=== PATIENT | female | born 1990 | race Caucasian/White ===

== ENCOUNTER 2024-05-06 05:09 | Inpatient (IN) | payer OTHER, SELFPAY ==
[2024-05-06] VITALS (154 sets, daily range): BP systolic 98–142; BP diastolic 55–93; PULSE 64–127; RESP 16; TEMP 36.6–37.1; O2SAT 96–100; BMI 30.8
--- NOTE | 2024-05-06 05:28 | LDADM ---
This patient, Elena Winston, was admitted to Labor/Delivery/Recovery 104 on 05/06/24 at 05:09. Plans for labor, pain management and were discussed with patient. Patient/family oriented to hospital policies and general routines including ID bracelet, bed and alarms, visiting hours, pain management, procedures, bathroom and other care routines, personal items, smoking policy, room service/diet and guest tray routines, security routines, and visiting hours. Patient/Family are encouraged to report perceived risks to care and to ask questions if they do not understand what they are told or what they should do. See [facility] for further documentation.
[2024-05-06 05:41] LABS: Basophils Absolute Auto 0.1 K/mm3 (0.0-0.1); Basophils Percent Auto 0.5 % (0.2-1.2); Eosinophils Absolute Auto 0.1 K/mm3 (0-0.3); Eosinophils Percent Auto 1.1 % (0-4.4); Hematocrit 34.2 % (37.0-47.0); Hemoglobin 11.2 g/dL (12.0-15.0); Immature Granulocyte Absolute 0.07 K/mm3 (0.00-0.031); Immature Granulocyte Percent A 0.7 % (0-0.5); Lymphocytes Absolute Auto 2.79 K/mm3 (0.9-3.2); Lymphocytes Percent Auto 27.8 % (18.3-44.2); Mean Corpuscular HGB Conc 32.7 g/dl (32-36); Mean Corpuscular Hemoglobin 27.7 pg (26-34); Mean Corpuscular Volume 84.4 fl (80-100); Mean Platelet Volume 11.4 fl (7.4-10.4); Monocytes Absolute Auto 0.6 K/mm3 (0.1-0.6); Monocytes Percent Auto 5.6 % (2.6-8.5); Neutrophils Absolute Auto 6.5 K/mm3 (1.3-6.7); Neutrophils Percent Auto 64.3 % (45.5-73.1); Platelet Count Result 209 k/mm3 (150-375); Red Blood Count 4.05 M/mm3 (4.2-5.4); Red Cell Distribution Width 14.5 % (11.5-14.5)
[2024-05-06] MEDS: OXYTOCIN 30 UNITS/NS 500 ML 30 UNITS/500 ML BAG 6 UNITS IV CONT (05:57)
[2024-05-06] MEDS: LACTATED RINGERS 1,000 ML 125 ML IV CONT ×3 (05:57→17:59)
[2024-05-06 06:32] LABS: HIV 1/2 Ab P24 Ag Result Negative (Negative)
[2024-05-06 06:54] LABS: Rapid Plasma Reagin Non-Reactive (NonReactive)
--- NOTE | 2024-05-06 08:41 | WPDHPUPDATE1 ---
History and Physical Update Update Date/Time: 05/06/24 08:41 33-year-old primiparous female at term who presents for elective induction. Cervix 3, 50, -2 -reassuring heart rate tracing. Active management of labor. Artificial rupture of membranes-clear, Pitocin History and Physical has been reviewed, including an updated exam of the patient. There are NO changes in the patient's condition. Risks, benefits, and alternatives have been discussed and questions answered. Patient agrees to proceed with procedure.
[2024-05-06] MEDS: ONDANSETRON INJ 4 MG/2 ML VIAL IV PUSH (15:39)
--- NOTE | 2024-05-06 19:41 | PM.OBPRVD ---
OB - Vaginal Delivery Note Procedure Delivery date: 05/06/24 Induction method: AROM and Per Pitocin Protocol Delivery monitor: External FHT and Internal Uterine Route of delivery: Episiotomy description: Midline Laceration Description: None Delivery repair: vicryl Specimen: No Quantitative Blood Loss (ml): 500 Anesthesia type: Epidural Disposition: Floor Complications: No immediate complications Baby Date of : 05/06/24 Time of : 19:20
[2024-05-06] MEDS: OXYTOCIN 30 UNITS/NS 500 ML 30 UNITS/500 ML BAG 125 UNITS IV CONT (19:45)
[2024-05-06] MEDS: WITCH HAZEL 40 PADS 1 PAD TOPICAL (20:17)
[2024-05-06] MEDS: BENZOCAINE 20% AER SPR (*SP) 56 GM CAN 1 SPRAY TOPICAL (20:17)
[2024-05-06] MEDS: IBUPROFEN 600 MG TABLET PO (22:21)
--- NOTE | 2024-05-06 23:02 | PC.NURSE ---
05/06/2024 at 2203 Patient transferred to post room #279 in wheelchair. Support person and patient oriented to unit, room, information board, rooming in, admission packet and security measures. Patient and her significant other verbalizes understanding.
[2024-05-07 04:00] VITALS: BP 117/75; PULSE 86; RESP 16; TEMP 36.6; O2SAT 100
[2024-05-07] MEDS: IBUPROFEN 600 MG TABLET PO ×4 (04:22→23:06)
[2024-05-07 04:31] LABS: Hematocrit 25.8 % (37.0-47.0)
[2024-05-07 07:15] VITALS: BP 124/88; PULSE 108; RESP 16; TEMP 37.1; O2SAT 100
--- NOTE | 2024-05-07 07:45 | PC.NURSE ---
Primary RN requested assistance for patient who is going to begin a feeding. Baby is LGA and has been fussy at feedings overnight with struggles latching. Mom already had baby latched to the right breast in football hold. Baby was sucking off and on with stimulation from mom. Encouraged mom that most babies are sleepy in the first 24 hours of life and need encouragement to breastfeed. Educated mom that it is best to feed when early feeding cues are seen rather than waiting for baby to cry, as this can make latching more challenging. Advised skin to skin to calm baby when needed and to feed on demand rather than by the clock. Mom declined pain with the latch and baby let go of the breast on her own after about 12 minutes. Assisted mom with burping and discussed signs that baby is satisfied after . Parents verbalized understanding of the information shared and will call out for assistance at subsequent feedings. Reported to primary RN.
[2024-05-07] MEDS: DOCUSATE SODIUM 100 MG CAPSULE PO ×2 (07:48→17:28)
[2024-05-07] MEDS: POLYSACCHARIDE IRON COMPLEX 150 MG CAPSULE PO ×2 (07:48→17:28)
[2024-05-07] MEDS: ACETAMINOPHEN 325 MG TABLET 650 MG PO ×3 (07:49→23:06)
[2024-05-07] MEDS: MULTIVIT/MIN/PREN/FOL AC/IRON TABLET 1 TAB PO ×2 (07:52→08:15)
--- NOTE | 2024-05-07 08:52 | WPDANLDPN2 ---
Anes-Prog Note L&D Date/Time: 05/07/24 08:52 Comfortable throughout: labor and delivery Neuraxial method: epidural Epidural/Spinal procedure site: clean & non-tender Neuro status: Neuro function grossly intact. Cardiovascular status: normal Respiratory status: normal Airway patency: baseline Mental status: baseline Post-Op hydration status: normal Vital Signs: Last Vital Signs Temp 37.1 C 05/07/24 07:15 Pulse 108 H 05/07/24 07:15 Resp 16 05/07/24 07:15 BP 124/88 05/07/24 07:15 Pulse Ox 100 05/07/24 07:15 O2 Del Method Room Air 05/07/24 08:05 Pain score (VAS): 1 I/O: Intake & Output 05/06/24 05/07/24 05/07/24 23:59 07:59 15:59 Intake Total 1000 Output Total 500 Balance 500 Post-procedural complaints: none Patient feedback: Patient satisfied with anesthetic care.
--- NOTE | 2024-05-07 10:13 | P.PNOB_ITS ---
OB - PN: Subj Subjective Date/time seen: 05/07/24 10:13 Patient comments: no complaints, pain well controlled, incisional pain, tolerating diet and flatus present OB - PN: Obj Data Labs 05/07/24 04:03 Labs: Laboratory Results - last 24 hr 05/07/24 04:03 Hgb 8.0 L D Hct 25.8 L OB - PN A/P Plan day: 1 Plan: routine care Comments: No problems, routine care Time Spent With Patient Time: Total time spent is greater than 50% in coordination of care (as documented) at patient's floor/unit and/or counseling patient: Exam 2 Const: General: comfortable, no acute distress and alert Resp: Effort & Inspection: normal respiratory effort Auscultation: no crackles, no rales and no rhonchi Cardio: Rate: regular rate Heart sounds: no click, no murmurs and no rubs GI: Inspection: non-distended GI Palp: No Tenderness to palpation present (GI) Auscultation: normal bowel sounds Other: Incision - CDI Extrem: General: normal to inspection, no pedal edema and no calf tenderness
--- NOTE | 2024-05-07 11:30 | PC.NURSE ---
1130- Checked on patient to see if the last feeding went okay since they hadn't call out for help. Mom says baby just ate for 20 minutes and did very well, no pain or complaints. Encouraged parents to call out for assistance as needed.
[2024-05-07 12:42] VITALS: BP 108/67; PULSE 94; RESP 16; TEMP 36.7; O2SAT 100
--- NOTE | 2024-05-07 15:30 | PC.NURSE ---
Mother called out for latching assistance. Infant is fussy and not able to latch or suck. We rotated to a new position and baby was able to suck on a gloved finger with chin support, but when offered the breast, baby was unable to close her mouth to latch. Primary RN noticed that baby had a 4 hour stretch between feedings and was showing significant feeding cues that were being masked by the use of a pacifier. Baby fed for 20 minutes at 1430 according to mom, but was acting hungry again an hour later. Encouraged mom to allow baby to settle by placing her skin to skin and then trying to feed again when early feeding cues are noted. Mom seems anxious and wants baby to feed now, but educated that babies don't respond well to feeding attempts when they are dysregulated. Encouraged mom to relax and call for assistance when baby is more call and receptive to feeding. Reported to primary RN.
[2024-05-07 20:00] VITALS: BP 123/75; PULSE 95; RESP 16; TEMP 36.4; O2SAT 96
[2024-05-08 08:00] VITALS: BP 115/75; PULSE 91; RESP 14; TEMP 36.4; O2SAT 99
--- NOTE | 2024-05-08 08:45 | PC.NURSE ---
Consulted with patient her plans to continue . Primary night RN stated that mother was feeding bottles throughout the night. Discussed her plan going forward and she would like to attempt with next feeding. Encouraged mother to call this RN to assist with next feeding. Educated mother that pumping should be initiated to protect her milk supply. Primary RN updated.
[2024-05-08] MEDS: MULTIVIT/MIN/PREN/FOL AC/IRON TABLET 1 TAB PO (08:55)
[2024-05-08] MEDS: ACETAMINOPHEN 325 MG TABLET 650 MG PO (08:55)
[2024-05-08] MEDS: IBUPROFEN 600 MG TABLET PO (08:55)
[2024-05-08] MEDS: DOCUSATE SODIUM 100 MG CAPSULE PO (08:55)
[2024-05-08] MEDS: POLYSACCHARIDE IRON COMPLEX 150 MG CAPSULE PO (08:55)
--- NOTE | 2024-05-08 09:05 | PC.NURSE ---
On 05/08/24, the student, Amina Vasquez, provided care and completed [facility] documentation on this patient. I have reviewed the student's documentation and agree with the findings.
--- NOTE | 2024-05-08 11:21 | PC.NURSE ---
Patient viewed the discharge video Mother & Baby Care, The First Two Weeks . Patient was given the opportunity and encouraged to ask questions. Patient verbalized understanding of information shared and has been given the mother/baby guide for home reference.
--- NOTE | 2024-05-08 12:03 | P.PNOB_ITS ---
OB - PN: Subj Subjective Date/time seen: 05/08/24 12:03 Patient comments: no complaints, pain well controlled and tolerating diet OB - PN: Obj Data Labs 05/07/24 04:03 OB - PN A/P Plan day: 2 Plan: routine care and discharge home Time Spent With Patient Time: Total time spent is greater than 50% in coordination of care (as documented) at patient's floor/unit and/or counseling patient: Exam 2 Const: General: comfortable and no acute distress Resp: Effort & Inspection: normal respiratory effort Auscultation: no rales, no rhonchi and no wheezes Cardio: Rate: regular rate Heart sounds: no click, no murmurs and no rubs GI: GI Palp: Yes Soft to palpation and No Tenderness to palpation present (GI) Auscultation: normal bowel sounds Extrem: General: normal to inspection, no pedal edema and no calf tenderness
--- NOTE | 2024-05-08 12:04 | PM.OBDSVD ---
DS: Admitting Diagnosis Discharge Date 05/08/2024 Admitting Diagnosis term DS: Discharge Diagnosis Discharge Diagnosis (1) Term : Code(s): Z34.90 - Encounter for supervision of normal , unspecified, unspecified trimester Status: Acute OB - DS: Summary OB Procedures : None OB Procedures Intrapartum: Spontaneous Vag Delivery OB Procedures: : None Peripartum Data Laceration Description: None Episiotomy description: Midline Time Spent with Patient Time attestation: Total time spent providing and/or coordinating discharge services: Discharge Plan Discharge Discharging Clinician: Placido Gastelum Patient Disposition: Home, Self-Care Activity: pelvic rest Diet: regular Patient Instructions: Antibiotic Form Patient Language: Upper Sorbian Stand Alone Forms: General Discharge Information Follow-up/Referrals: Placido Gastelum MD [Physician] - Discharge Medications: New ibuprofen 800 mg tablet 800 mg PO TID Qty: 20 0RF Continued PNV [id number]-ferrous fumarate-FA [] 28 mg iron- 800 mcg tablet 1 tablet PO DAILY Date of admission: 05/06/24 05:09 Primary Care Provider: Marciano Niño Admitting Provider: Placido Gastelum Attending physician on admission: Placido Gastelum Condition: Stable
[2024-05-09 10:41] VITALS: BP 124/77; PULSE 84; RESP 18; TEMP 36.9; O2SAT 100
--- OUTSIDE RECORDS SUMMARY | 2024-05-09 11:22 | XMS_ITS | Data Portability ---
Author Organization [facility] Address [address] [place] [address] Care Team Providers Care Paper Sorter Name Role Phone MONIQUE GERARD Primary Care Provider Assessment Encounter Date Assessment Date Assessment LastModified by Organization Details LastModified Time 03/20/2024 03/20/2024 Patient is __32_weeks . Discussed plan. [email or web address] Not available 03/20/2024 16:31:48 04/01/2024 04/01/2024 Patient is ___weeks . Discussed plan. Not available 04/01/2024 15:03:54 04/08/2024 04/08/2024 Patient is ___weeks . Discussed plan. Not available 04/08/2024 15:22:30 04/15/2024 04/15/2024 Patient is ___weeks . Discussed plan. [email or web address] Not available 04/15/2024 17:13:25 04/29/2024 04/29/2024 Patient is ___weeks . Discussed plan. Not available 04/29/2024 14:54:58 Plan of Treatment Reminders Order Date Submit Date Provider Last Modified By Organization Details Last Modified Time Details Appointments None record ed. Lab None record ed. Referral None record ed. Procedures None record ed. Surgeries None record ed. Imaging None record ed. Medication Orders None record ed. Patient TargetsNo targets recorded. Patient InstructionsNo instructions recorded. Reason for Referral None Reported. Results Created Date Observation Date Name Description Value Unit Range Abnormal Flag Note LastModifiedBy Organization Detail LastModifiedTime 02/19/20 24 02/19/2024 HEMAT OCRIT (HCT) HCT 35.4 % (based on docume nted legal sex) 34.0-4 5.0 Not Available [facility] (Lab) [address], [place], [address], 02/20/2024 12:06:08 02/19/20 24 02/19/2024 HEMOG LOBIN (HGB) HGB 11.5 g/dL (based on docume nted legal sex) 11.6-1 5.4 low Not Available [facility] (Lab) [address], [place], [address], 02/20/2024 12:06:08 02/19/20 24 02/19/2024 GTT - GESTA RAJAN L SCREE N, ACOG OB glucose, 1 hour screen 118 mg/dL 70-135 Not Available [facility] (Lab) [address], [place], [address], 02/20/2024 12:06:09 02/19/20 24 02/19/2024 HIV 1/2 ANTIG EN/AN TIBOD Y, REFLE X CONFI RMATI ON HIV antigen/anti body Nonrea ctive nonrea ctive HIV-1 antig en and HIV-1 /HIV- 2 antib odies were not detec ashu. No labor atory evide nce of HIV infec tion. Not Available [facility] (Lab) [address], [place], [address], 02/20/2024 12:06:09 02/19/20 24 02/19/2024 RPR SCREE N, REFLE X TITER /CONF IRMAT ION RPR screen Nonrea ctive nonrea ctive Not Available [facility] (Lab) [address], [place], [address], 02/20/2024 12:06:10 04/08/20 24 04/08/2024 CULTU RE: GROUP B STREP SCREE N, REFLE X SUSCE PTIBI LITY result report SEE RESULT S BELOW Test: Cultu re: Group B Strep , Refle x Susce ptibi lity ([facility]/ [facility]/K H/[facility] ) Speci men Sourc e: Vagin a/Rec keturah Speci men Type: Vagin al/Re ctal Speci men Date: 04/08 1521 Resul t Date: 04/11 0943 Resul t Statu s: Final resul t Abnor mal: No Resul ting Lab: [facility] [address] [facility] [address] Tel: [phone] CULTU RE ----- ----- ----- --- No Group B strep isola ashu at 2 days (evita ctive broth enhan cemen t) Not Available [facility] (Lab) [address], [place], [address], 04/11/2024 10:46:30 03/11/20 24 03/11/2024 US, obste tric, follo w-up No observ ation record ed. [email or web address] [facility] [address], [place], [address], 03/11/2024 11:29:05 03/11/20 24 03/11/2024 US, obste tric, follo w-up No observ ation record ed. [email or web address] [address] [address], [place], [address], 03/11/2024 15:59:19 Result Notes None recorded. Problems Name Problem SNOMED Code Status Onset Date Resolution Date Notes Provider Name and Address Organization Details Recorded Time 87550140 Active 2023 Selma James null, [facility] 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 4 16:02:08 Abnormal cervical Papanicol aou smear 619301307 Active Placido Gastelum MD [address], [place], [address], [facility] 4 16:27:54 Low lying placenta 971572290 Active 2023 LLP resolved 01/22/24 Ezio Iraheta null, [facility] 4 10:18:14 Abdominal pain 74006842 Active intermitt ent cramping, normal cervical length Placido Gastelum MD [address], [place], [address], [facility] 4 12:49:48 Problem Notes None recorded. Procedures Surgical History Date Name Laterality Status Provider Name and Address Organization Details Recorded Time 12/04/19 24 Colposcopy completed Placido Gastelum MD [address], [place], [address], [facility] 12/04/2023 22:42:41 10/30/19 24 Date of Last Pap Smear completed Selma James [facility] 12/04/2023 14:14:56 04/17/19 20 extraction of wisdom tooth completed Alicia Laura [facility] 04/15/2024 17:16:05 Imaging Results Imaging Date Name Status LastModified by Organiz ation Details LastModified Time 03/11/2024 US, obstetric, follow-up completed [email or web address] [facility] [address], [place], [address], 03/11/2024 11:29:05 03/11/2024 US, obstetric, follow-up completed [email or web address] [address], [place], [address], 03/11/2024 15:59:19 Procedure Notes None recorded. Medical Equipment None Reported. Allergies No known drug allergies Medications Name Sig Start Date Stop Date Status Note LastModified by Organization Details LastModified Time active Not Available Not Avai lable Not Available Vitals Date Recorded Body height Body mass index (BMI) Body weight Systolic blood pressure Diastolic blood pressure Provider Name and Address Organization Details Last Updated DateTime 03/20/2024 165.1 cm 30.1 kg/m2 89653.22 g 118 mm[Hg] 74 mm[Hg] Alicia Laura [facility] 16:12:39 Date Recorded Body height Body mass index (BMI) Body weight Systolic blood pressure Diastolic blood pressure Provider Name and Address Organization Details Last Updated DateTime 04/01/2024 165.1 cm 30 kg/m2 88157.63 g 113 mm[Hg] 75 mm[Hg] Selma [facility] 4 15:13:48 Date Recorded Body weight Systolic blood pressure Diastolic blood pressure Provider Name and Address Organization Details Last Updated DateTime 04/08/2024 93800.5884 5 g 117 mm[Hg] 77 mm[Hg] Selma [facility] 04/08/2024 15:23:11 Date Recorded Body weight Body mass index (BMI) Body height Systolic blood pressure Diastolic blood pressure Provider Name and Address Organization Details Last Updated DateTime 04/15/2024 91248.58 845 g 30.8 kg/m2 165.1 cm 128 mm[Hg] 78 mm[Hg] Alicia Laura [facility] 4 17:13:57 Date Recorded Body height Body mass index (BMI) Body weight Systolic blood pressure Diastolic blood pressure Provider Name and Address Organization Details Last Updated DateTime 04/29/2024 165.1 cm 30.8 kg/m2 37464.59 g 129 mm[Hg] 83 mm[Hg] Selma [facility] 14:56:11 Social History Question Answer Notes LastModified by Organizat ion Details LastModified Time Tobacco Smoking Status Former Smoker Alicia Laura [facility] 12/25/2023 16:03:51 What Is Your Level Of Alcohol Consumption? None [email or web address] Information not available 10/02/2023 If You Are , What Was Your Level Of Alcohol Consumption Prior To ? None [email or web address] Information not available 12/25/2023 How Many Years Have You Consumed Alcohol? 0 [email or web address] Information not available 03/20/2024 Are You Blind Or Do You Have Difficulty Seeing? No [email or web address] Information not available 10/02/2023 What Is Your Level Of Caffeine Consumption? Occasional [email or web address] Information not available 10/02/2023 How Much Tobacco Do You Chew? None [email or web address] Information not available 12/25/2023 In The 14 Days Before Symptom Onset, Have You Had Close Contact With A Laboratory-confir med COVID-19 While That Case Was Ill? No [email or web address] Information not available 10/02/2023 In The 14 Days Before Symptom Onset, Have You Had Close Contact With A Person Who Is Under Investigation For COVID-19 While That Person Was Ill? No [email or web address] Information not available 10/02/2023 Have You Been To An Area Known To Be High Risk For COVID-19? No [email or web address] Information not available 10/02/2023 Are You Deaf Or Do You Have Serious Difficulty Hearing? No [email or web address] Information not available 10/02/2023 What Type Of Diet Are You Following? REGULAR [email or web address] Information not available 10/02/2023 What Is The Highest Grade Or Level Of School You Have Completed Or The Highest Degree You Have Received? [id number] [email or web address] Information not available 10/02/2023 What Is Your Occupation? [employer] Information not available 04/29/2024 Are There Any Guns Present In Your Home? No [email or web address] Information not available 10/02/2023 Do You Use Protection During Sex? No [email or web address] Information not available 10/02/2023 Do You Use Your Seat Belt Or Car Seat Routinely? Yes Information not available 10/02/2023 Do You Have Smoke And Carbon Monoxide Detectors In Your Home? Yes [email or web address] Information not available 10/02/2023 At What Age Did You Start Smoking Tobacco? 19 [email or web address] Information not available 10/02/2023 How Much Tobacco Do You Smoke? No Information not available 12/25/2023 Do You Feel Stressed (tense, Restless, Nervous, Or Anxious, Or Unable To Sleep At Night)? [id number] [email or web address] Information not available 10/02/2023 Do You Use Any Illicit Or Recreational Drugs? No [email or web address] Information not available 12/25/2023 Do You Use Sunscreen Routinely? No [email or web address] Information not available 10/02/2023 How Many Years Have You Smoked Tobacco? 14 Information not available 10/02/2023 Have You Used IV Drugs? No [email or web address] Information not available 10/02/2023 Sex: Unknown Functional Status Question Answer Note LastModified by Organizat ion Details LastModified Time Do you have difficulty walking or climbing stairs? No [email or web address] Information not available 10/02/2023 Are you able to walk? YESWOREST [email or web address] Information not available 10/02/2023 Are you able to care for yourself? Yes [email or web address] Information not available 10/02/2023 Do you have difficulty dressing or bathing? No [email or web address] Information not available 10/02/2023 What is your exercise level? Occasional Information not available 10/02/2023 Mental Status None recorded. Family History Relationship Description Onset Age of this Age Resolved Age Notes LastModified by Organization Details LastModified Time Unspecified Relation Family history unknown [email or web address] Not available 2023 15:33:18 Medical History Condition Response Allergies (Food, seasonal, environmental ) N Other N Breast Cancer N Drug/Latex Allergies/Reactions N Blood Transfusion N Dermatologic Disorders N Lung Disease N Defects or Inherited Disease N Breast Problem N Gestational Diabetes N Hematologic disorders N Anesthesia Complications N History of STI Y Deep Vein Thrombosis N Polycystic ovary syndrome N Anxiety Disorder N Autoimmune disease N Arthritis N Infertility N Polyps N Acid Reflux (GERD) N History of abnormal pap Y Cancer N Stroke N Varicosities N Neurologic/Epilepsy N Endometriosis N High Cholesterol N Headaches N Fibromyalgia N Kidney Disease N Heart Problems N Kidney or Bladder Problems N Thyroid Problems N GI Problems N Eating Disorder N Anemia N Art (IVF or FET) N Psychiatric Illness N Ovarian Cancer N Diabetes N Pulmonary (TB, Asthma) N Hepatitis/Liver Disease N No Past Medical History Y Eczema N Urinary Tract Infection N Abuse/Domestic Violence N Asthma N Trauma/Violence N Depression/ depression N Heart Disease N Pre-Eclampsia N Hypertension N Osteoporosis N Thrombophilias N Gynecological History Statement/Question Response Abnormal Pap Yes Date of Last Mammogram Date of LMP 08/03/2023 On BCP's at Conception? N N Was last menstrual period normal Y STIs/STDs Y HPV Vaccine N Duration of Flow (days) 4 Current Control Method Date of Last Colonoscopy Frequency of Cycle (Q days) 5 Sexually Active? Y None Date of DEXA bone scan Age of first menstrual cycle 12 Date of Last Pap Smear 10/30/2023 Sexual Problems? N Desired Control Method None LMP Approximate N Obstetrics History GPAL:G 1 P 0 0 0 0 Type Value Living 0 Total 1 Past Encounters Encounter ID Performer Location Encounter Start Date Encounter Closed Date Diagnosis/Indication Diagnosis SNOMED-CT Code Diagnosis ICD10 Code Diagnosis Note Leah Cabrera [facility] [address],[place] [address] 10/02/2023 14:34:23 10/02/2023 15:03:46 [id number] Placido Gastelum MD [facility] [address],[place] [address] 10/02/2023 14:36:38 10/02/2023 16:03:25 Amenorrhea 71607206 N91.2 this patient is a 33-year-ol d female who presents for amenorrhea . She is a positive test. Ultrasound revealed a 1st trimester gestation. Patient has no complaints . We talked about early care. Talked about genetic screening. We talked about her ultrasound results. We talked about the 12 week ultrasound that has genetic screening components . She was given recommenda tions on exercise, diet, over-the-c ounter medication s. We reviewed her obstetric history. We reviewed her medical history. We reviewed her social history. She will begin routine care at her next visit. [id number] Monae Rani [facility] [address],[place] [address] 10/30/2023 14:26:01 10/30/2023 15:02:41 screening 112559628 Z36.82 Z3A.12 [id number] Placido Gastelum MD [facility] [address],[place] [address] 10/30/2023 14:26:46 10/30/2023 15:48:02 Routine care 447351532 Z34.91 [id number] Placido Gastelum MD [facility] [address],[place] [address] 11/27/2023 14:57:49 11/27/2023 15:59:35 Routine care 231771469 Z34.91 [id number] Placido Gastelum MD [facility] [address],[place] [address] 12/04/2023 13:58:10 12/05/2023 04:13:02 Abnormal cervical Papanicolaou smear 755984535 R87.619 colposcopy was performed. It was satisfacto ry. It was normal. To repeat Pap smear in 1 year [id number] [facility] [address],[place] [address] 12/25/2023 14:20:51 12/25/2023 17:03:10 screening for malformation 163068328 Z36.3 O44.40 Z3A.20 [id number] Placido Gastelum MD [facility] [address],[place] [address] 12/25/2023 14:21:40 12/25/2023 17:02:42 Routine care 108634397 Z34.91 [id number] Placido Gastelum MD [facility] [address],[place] [address] 01/22/2024 11:25:41 01/22/2024 12:51:21 Routine care 411256120 Z34.91 [id number] [facility] [address],[place] [address] 01/22/2024 11:26:55 01/22/2024 12:29:53 screening 587122714 Z36.2 O44.40 Z3A.24 [id number] Placido Gastelum MD [facility] [address],[place] [address] 02/19/2024 14:44:19 02/19/2024 15:57:34 Routine care 481267000 Z34.91 [id number] Placido Gastelum MD [facility] [address],[place] [address] 03/04/2024 15:43:16 03/04/2024 18:09:32 Routine care 617370171 Z34.91 [id number] Leah Cabrera [facility] [address],[place] [address] 03/11/2024 10:26:51 03/11/2024 10:58:27 Uterine size for dates discrepancy 948807600 O26.843 Z3A.31 [id number] Lainey Simpson [facility] [address],[place] [address] 03/20/2024 15:50:06 03/20/2024 16:44:23 Routine care 329673017 Z34.93 [id number] MD Matt Madden [address],[place] [address] 04/01/2024 14:43:00 04/01/2024 16:05:00 Routine care 909589436 Z34.91 [id number] Placido Gastelum MD [facility] [address],[place] [address] 04/08/2024 15:10:04 04/08/2024 15:59:10 Routine care 221856225 Z34.91 [id number] Placido Gastelum MD [facility] [address],[place] [address] 04/15/2024 16:11:49 04/16/2024 06:50:33 Routine care 156799229 Z34.91 [id number] MD Matt Madden [address],[place] [address] 04/29/2024 14:46:27 04/29/2024 15:27:20 Routine care 576020403 Z34.91 Health Concerns Section Related Observation LastModified by Organization Detai ls LastModified Time None Recorded Concern Status LastModified by Organization Details LastModified Time None Recorded Advance Directives Directive None Recorded Payers Encounter Date Sequence Insurance Name Policy Number Policy [place] Covered Member ID [place] Member ID Guarantor Name 03/20/2024 1 [facility] [id number] Jourdan Winston [id number] Elena Winston 04/01/2024 1 [facility] [id number] Jourdan Winston [id number] Elena Winston 04/08/2024 1 [facility] [id number] Jourdan Winston [id number] Elena Winston 04/15/2024 1 [facility] [id number] Jourdan Winston [id number] Elena Winston 04/29/2024 1 [facility] [id number] Jourdan Winston [id number] Elena Winston OBGyn Episode Ob Episode Information Episode Created Date Number of Fetuses Patient Bloodtype Patient rh Status Prepregnancy Weight lbs Domestic Partner Domestic Partner Phone Father Name [employer] Status 10/30/19 24 1 O Positive 135 Jourdan Winston OPEN Fetus Data First Name Last Name Admitted to NICU Weight (g) Sex Living Outcome Pediatric Complications Fetus ID Race Codes Race Delivery Type [id number] Problems Problem Notes pap +HPV -Colpo scheduled Problem Name Start Date End Date Resolution Snomed Code Not e Abnormal cervical Papanicolaou smear 131833973 Abdominal pain 36889202 inter mittent cramping, normal cervical length Low lying placenta 12/28/2023 760791846 LLP resolved 01/22/24 Quang Calculation Initial Quang Date Initial Exam Date Initial Exam Provider Initial Ultrasound Date Last Menstrual Period Date Ultra Sound Weeks Gestation 05/09/2024 10/30/2023 10/30/2023 08/03/2023 12 Eighteen To Twenty Week Quang Update Ultra Sound Date Fundal Height At Umbil Quickening Date Ultra Sound Latest Weeks Gestation Final Quang Confirmed By Final Quang Confirmed Date Final Quang Date Ultra Sound Latest Days Gestation 0 [email or web address] 10/30/2023 05/09/19 25 0 Pre-dennis Flowsheet Flowsheet Date 10/30/2023 Boyd Score Blood Edema Fundus Height Fundus Units Glucose Ketones Leukocytes Nitrite Labor Signs Protein Cervic Dilation Cervic Effacement Cervic Station neg none Type Weight in lbs Pre/Post Dialysis Refused Weight 135.88434262047 BP Diastolic BP Location Tested BP Systolic BP Type 77 L arm 115 sitting Fetus Heart Rate Present A 145 Fetus Movement A No Comments this patient is a 33year-old nuliparous female at 12 weeks' gestation who presents for initial care. She has a history of term vaginal births. Her medical, surgical, obstetric history is unremarkable. She is vaccinated. She was given precautions recommendations for . We talked about vaccines in . Talked about care in detail. She is having genetic testing. She had a normal 12 week ultrasound. To begin routine care. Flowsheet Date 11/27/2023 Boyd Score Blood Edema Fundus Height Fundus Units Glucose Ketones Leukocytes Nitrite Labor Signs Protein Cervic Dilation Cervic Effacement Cervic Station Type Weight in lbs Pre/Post Dialysis Refused 144.440053468489 BP Diastolic BP Location Tested BP Systolic BP Type 78 L arm 129 sitting Fetus Heart Rate Present A 145 Fetus Movement A Yes Comments no complaints, no problems, routine care, no contractions, no vaginal bleeding, no loss of fluid, no cramping Flowsheet Date 12/04/2023 Boyd Score Blood Edema Fundus Height Fundus Units Glucose Ketones Leukocytes Nitrite Labor Signs Protein Cervic Dilation Cervic Effacement Cervic Station Type Weight in lbs Pre/Post Dialysis Refused Weight 146.088702831140 BP Diastolic BP Location Tested BP Systolic BP Type 73 L arm 119 sitting Fetus Heart Rate Present Fetus Movement Comments Flowsheet Date 12/25/2023 Boyd Score Blood Edema Fundus Height Fundus Units Glucose Ketones Leukocytes Nitrite Labor Signs Protein Cervic Dilation Cervic Effacement Cervic Station Type Weight in lbs Pre/Post Dialysis Refused BP Diastolic BP Location Tested BP Systolic BP Type Fetus Heart Rate Present Fetus Movement Comments Flowsheet Date 12/25/2023 Boyd Score Blood Edema Fundus Height Fundus Units Glucose Ketones Leukocytes Nitrite Labor Signs Protein Cervic Dilation Cervic Effacement Cervic Station none Type Weight in lbs Pre/Post Dialysis Refused 152.800172084250 BP Diastolic BP Location Tested BP Systolic BP Type 84 128 Fetus Heart Rate Present A 150 Fetus Movement A Yes Comments no complaints, no problems, routine care, no contractions, no vaginal bleeding, no loss of fluid, no cramping repeat anatomy scan, low-lying placenta, incomplete cardiac images Flowsheet Date 01/22/2024 Boyd Score Blood Edema Fundus Height Fundus Units Glucose Ketones Leukocytes Nitrite Labor Signs Protein Cervic Dilation Cervic Effacement Cervic Station Type Weight in lbs Pre/Post Dialysis Refused BP Diastolic BP Location Tested BP Systolic BP Type Fetus Heart Rate Present Fetus Movement Comments Flowsheet Date 01/22/2024 Boyd Score Blood Edema Fundus Height Fundus Units Glucose Ketones Leukocytes Nitrite Labor Signs Protein Cervic Dilation Cervic Effacement Cervic Station neg none none trace Type Weight in lbs Pre/Post Dialysis Refused Weight 161.891915090199 BP Diastolic BP Location Tested BP Systolic BP Type 77 L arm 114 sitting Fetus Heart Rate Present Fetus Movement A Yes Comments Patient c/o of lower abdomen cramps and pains. Having pain with lifting at work. We would like belly band. Otherwise, no complaints, no problems, routine care, no contractions, no vaginal bleeding, no loss of fluid, no cramping Flowsheet Date 02/19/2024 Boyd Score Blood Edema Fundus Height Fundus Units Glucose Ketones Leukocytes Nitrite Labor Signs Protein Cervic Dilation Cervic Effacement Cervic Station 28 cm Type Weight in lbs Pre/Post Dialysis Refused 171.033549905638 BP Diastolic BP Location Tested BP Systolic BP Type 70 L arm 121 sitting Fetus Heart Rate Present A 1454 Fetus Movement A Yes Comments no complaints, no problems, routine care, no contractions, no vaginal bleeding, no loss of fluid, no cramping Flowsheet Date 03/04/2024 Boyd Score Blood Edema Fundus Height Fundus Units Glucose Ketones Leukocytes Nitrite Labor Signs Protein Cervic Dilation Cervic Effacement Cervic Station Type Weight in lbs Pre/Post Dialysis Refused Weight 173.414963514812 BP Diastolic BP Location Tested BP Systolic BP Type 75 L arm 118 sitting Fetus Heart Rate Present A 155 Fetus Movement A Yes Comments no complaints, no problems, routine care, no contractions, no vaginal bleeding, no loss of fluid, no cramping Flowsheet Date 03/11/2024 Boyd Score Blood Edema Fundus Height Fundus Units Glucose Ketones Leukocytes Nitrite Labor Signs Protein Cervic Dilation Cervic Effacement Cervic Station Type Weight in lbs Pre/Post Dialysis Refused BP Diastolic BP Location Tested BP Systolic BP Type Fetus Heart Rate Present Fetus Movement Comments Flowsheet Date 03/20/2024 Boyd Score Blood Edema Fundus Height Fundus Units Glucose Ketones Leukocytes Nitrite Labor Signs Protein Cervic Dilation Cervic Effacement Cervic Station Type Weight in lbs Pre/Post Dialysis Refused Weight 181.001975103773 BP Diastolic BP Location Tested BP Systolic BP Type 74 118 Fetus Heart Rate Present Fetus Movement A Yes Comments +FM preadmit scheduled, vtx on us, ok for rsv handout given, precautions and education f/u 2 weeks Flowsheet Date 04/01/2024 Boyd Score Blood Edema Fundus Height Fundus Units Glucose Ketones Leukocytes Nitrite Labor Signs Protein Cervic Dilation Cervic Effacement Cervic Station Type Weight in lbs Pre/Post Dialysis Refused Weight 180.762853774340 BP Diastolic BP Location Tested BP Systolic BP Type 75 L arm 113 sitting Fetus Heart Rate Present A 149 Fetus Movement A Yes Comments discussed vaccine timing in the 3rd trimester. Patient is doing well. She has no complaints. Flowsheet Date 04/08/2024 Boyd Score Blood Edema Fundus Height Fundus Units Glucose Ketones Leukocytes Nitrite Labor Signs Protein Cervic Dilation Cervic Effacement Cervic Station 35 cm 2cm Type Weight in lbs Pre/Post Dialysis Refused 185.137660225346 BP Diastolic BP Location Tested BP Systolic BP Type 77 L arm 117 sitting Fetus Heart Rate Present Fetus Movement A Yes Comments no complaints, no problems, routine care, no contractions, no vaginal bleeding, no loss of fluid, no cramping Flowsheet Date 04/15/2024 Boyd Score Blood Edema Fundus Height Fundus Units Glucose Ketones Leukocytes Nitrite Labor Signs Protein Cervic Dilation Cervic Effacement Cervic Station trace Type Weight in lbs Pre/Post Dialysis Refused [id number] BP Diastolic BP Location Tested BP Systolic BP Type 78 128 Fetus Heart Rate Present A 144 Fetus Movement A Yes Comments no complaints, no problems, routine care, no contractions, no vaginal bleeding, no loss of fluid, no cramping Flowsheet Date 04/29/2024 Boyd Score Blood Edema Fundus Height Fundus Units Glucose Ketones Leukocytes Nitrite Labor Signs Protein Cervic Dilation Cervic Effacement Cervic Station Type Weight in lbs Pre/Post Dialysis Refused Weight [id number] BP Diastolic BP Location Tested BP Systolic BP Type 83 L arm 129 sitting Fetus Heart Rate Present A 145 Fetus Movement A Yes Comments no complaints, no problems, routine care, no contractions, no vaginal bleeding, no loss of fluid, no cramping Menstrual History Last Menstrual Date Menses Monthly On Bcp Conception Prior Menses Frequency Hcg Plus Date Menarche Onset Age 0408/03/2023 true 28 13 Genetic Screening And Infection History Question Response Note Mental Retardation/Autism false Patient's Age Will Be 35 Yea rs Or Older At Estimated Date of Delivery false Thalassemia (Citizen Of [place], Occitan, Mediterranean, Or Background): MCV < 80 false Neural Tube Defect (Meningomyelocele, Spina Bifi da, Or Anencephaly) false Congenital Heart Defect false Down Syndrome false Chad-Sachs (eg, Buddhism, [place], [place]ian-[place]) f alse Colin Disease false Sickle Cell Disease Or Trait () false Hemophilia Or Other Blood Disorders false Muscular Dystrophy false Cystic Fibrosis false [place] false Intellectual Disability/Autism false If Yes, Was Person Tested For Fragile X? false Other Inherited Genetic Or Chromosomal Disorder false Maternal Metabolic Disorder (eg, Type 1 Diabetes , PKU) false Patient Or Baby's Father Had A Child With Defects Not Listed Above false Recurrent Loss, Or A Stillbirth false Medications (including Suppl ements, Vitamins, Herbs, OTC Drugs), Illicit/Recreational Drugs, Alcohol true tobacco If Yes, Agent(s) And Strength/Dosage false Any Other Genetic History false Live With Someone With TB Or Exposed To TB false Patient Or Partner Has History Of Genital Herpes false Rash Or Viral Illness Since Last Menstrual Perio d false History Of STD, Gonorrhea, Chlamydia, HPV, Syphi lis false Other Infection History false History of HIV false History of Hepatitis false Prior GBS-infected child false Hemoglobinopathy Or Carrier false Other Structural Defect false Recent Travel History Outside of Country false Delivery Information Delivery Date Delivery Type Labor Anesthesia Weeks Gestation Incision Type Labor Labor Length Hrs Delivered By Post Complications Tubal Sterilization Discharge Date Comments Discharge Information Feeding Method Contraceptive Method Maternal HG B and HCT Levels
== END 2024-05-08 13:56 | disposition home or self-care (01) | DRG 807 ==
LOC: ANHLDR 05:12 → ANHOB2 22:07
PROVIDERS: Admitting Provider Obstetrics & Gynecology; PCP Family Medicine Adolescent Medicine; Visit Provider Obstetrics & Gynecology
DX: O80 Encounter for full-term uncomplicated delivery (principal); Z37.0 Single live birth; Z3A.39 39 weeks gestation of pregnancy
CPT/HCPCS: 36415; 85014; 85018; 85025; 86592; 86703; 86850; 86900; 86901; A9270; G0432; J2405; J2590; J2795; J7120